=== PATIENT | female | born 1990 | race Hispanic/Latino ===

== ENCOUNTER 2019-07-11 15:26 | Inpatient (IN) | payer MEDICAID ==
[~2019-07-11] VITALS: Ht 165.1 cm; Wt 78.5 kg
[2019-07-11] MEDS ORDERED: LACTATED RINGERS 1000ML 1,000 ML IV PRN (19:33)
[2019-07-11] MEDS ORDERED: OXYTOCIN-LR 20 UNITS/1000 ML 1,000 ML IV SCH ×2 (19:45)
[2019-07-11 20:44] LABS: HEMATOCRIT 35.2 % (36-48); MEAN CORPUSCULAR HEMOGLOBIN 31.4 pg (27.0-33.0); MEAN CORPUSCULAR HGB CONC 34.6 g/dL (32.0-36.0); MEAN CORPUSCULAR VOLUME 90.6 fL (79-99); NUCLEATED RED BLOOD CELLS 0.1 % (0.0-0.19); PLATELET COUNT (AUTO) 200 K/uL (130-400); RED BLOOD CELL COUNT(AUTO) 3.88 MIL/uL (4.00-5.50); RED CELL DISTRIBUTION WIDTH 14.4 % (11.0-15.5); WHITE BLOOD COUNT (AUTO) 7.7 K/uL (4.8-10.8)
[2019-07-11 20:51] LABS: APPEARANCE,URINE Clear (CLEAR); BILIRUBIN,URINE Negative (NEGATIVE); COLOR,URINE Yellow (YELLOW); GLUCOSE, URINE (UA) Negative (NEGATIVE); KETONES,URINE Negative (NEGATIVE); LEUKOCYTE ESTERASE ,URINE Moderate (NEGATIVE); NITRATE,URINE Negative (NEGATIVE); OCCULT BLOOD,URINE Negative (NEGATIVE); PROTEIN,URINE Negative (NEGATIVE); UROBILINOGEN,URINE 0.2 mg/dL (0.2-1.0)
[2019-07-11 21:29] LABS: BACTERIA,URINE Few /HPF (None Seen); RBC,URINE 0-1 /HPF (0-1); SQUAMOUS EPITHELIAL CELL,UR Few /HPF (0-2)
[2019-07-12] MEDS ORDERED: PROMETHAZINE HCL 25 MG/ML 1ML AMPULE IM ONE (04:45)
[2019-07-12] MEDS ORDERED: MEPERIDINE-PF 50 MG/ML SYG IVP ONE (04:45)
[2019-07-12] MEDS ORDERED: MEPERIDINE-PF 50 MG/ML SYG ONE (05:07)
[2019-07-12] MEDS ORDERED: OXYTOCIN 10 USP UNITS/ML 20 UNIT in LACTATED RINGERS 1000ML 1,000 ML IV SCH (05:30)
[2019-07-12] MEDS ORDERED: ZIDOVUDINE 10 MG/ML IV SCH ×2 (06:30→06:45)
[2019-07-12] MEDS ORDERED: LACTATED RINGERS 500 ML 500 ML IV PRN (07:00)
[2019-07-12] MEDS ORDERED: ROPIVACAINE 0.2% 100ML VIAL 100 ML EP SCH (07:00)
[2019-07-12] MEDS ORDERED: EPHEDRINE SULFATE 50 MG/ML AMPULE IVP PRN (07:00)
[2019-07-12] MEDS ORDERED: NALOXONE HCL 0.4 MG/1 ML ML IV PRN (07:00)
[2019-07-12] MEDS ORDERED: ZIDOVUDINE IV SCH (07:15)
[2019-07-12] MEDS ORDERED: DEXTROSE 5% IV SCH (07:15)
[2019-07-12] MEDS ORDERED: WATER IV SCH (07:15)
[2019-07-12] MEDS ORDERED: FENTANYL CITRATE PF 50 MCG/1 ML 2ML VIAL ONE (09:00)
[2019-07-12] MEDS ORDERED: ACETAMINOPHEN 325 MG TAB PO PRN (12:00)
[2019-07-12] MEDS ORDERED: DIPH,PERTUSS(ACELL),TET VAC/PF 0.5 ML VIAL IM PRN (12:00)
[2019-07-12] MEDS ORDERED: PHARMACY COMMUNICATION MISC SCH (12:00)
[2019-07-12] MEDS ORDERED: BENZOCAINE/LANOLIN/ALOE VERA 60 ML AEROSOL TP PRN (12:00)
[2019-07-12] MEDS ORDERED: MEASLES/MUMPS/RUBELLA VACCINE, LIVE 0.5 ML/VIAL SQ PRN (12:00)
[2019-07-12] MEDS ORDERED: WITCH HAZEL 1 PAD TP PRN (12:00)
[2019-07-12] MEDS ORDERED: LANOLIN 30GM OINTMENT TP PRN (12:00)
[2019-07-12 13:34] VITALS: BP 106/59
[2019-07-12] MEDS: IBUPROFEN 600 MG TABLET PO PRN (13:58)
[2019-07-12] MEDS ORDERED: PNV1TABL17 PO (14:03)
[2019-07-12 15:58] LABS: RAPID PLASMA REAGIN NONREACTIVE (NONREACTIVE)
[2019-07-12 17:16] VITALS: BP 107/61
[2019-07-12 19:56] VITALS: BP 118/63
[2019-07-12] MEDS: DOCUSATE SODIUM 100 MG CAP PO SCH (21:49)
[2019-07-12 23:30] VITALS: BP 97/54
[2019-07-13 03:58] VITALS: BP 109/77
[2019-07-13] MEDS: IBUPROFEN 600 MG TABLET PO PRN ×3 (04:00→17:53)
[2019-07-13 05:51] LABS: HEMATOCRIT 32.7 % (36-48); MEAN CORPUSCULAR HEMOGLOBIN 31.1 pg (27.0-33.0); MEAN CORPUSCULAR HGB CONC 34.7 g/dL (32.0-36.0); MEAN CORPUSCULAR VOLUME 89.8 fL (79-99); PLATELET COUNT (AUTO) 156 K/uL (130-400); RED BLOOD CELL COUNT(AUTO) 3.64 MIL/uL (4.00-5.50); RED CELL DISTRIBUTION WIDTH 14.2 % (11.0-15.5)
[2019-07-13 07:14] LABS: HEPATITIS Bs ANTIGEN SCREEN P Negative (Negative)
[2019-07-13 07:29] VITALS: BP 110/66
--- NOTE | 2019-07-13 07:30 | NUR ---
PATIENT DENIES ANY PAIN AND DENIES ANY PROBLEMS. INDICATED TO Harsh CHIN CNM THAT SHE IS ONLY GOING TO BE FORMULA FEEDING. PATIENT INDICATED OF POSSIBLY BABY NOT BEING DISCHARGED AND WAS INFORMED SHE COULD GO HOME WHEN BABY IS DISCHARGED.
--- NOTE | 2019-07-13 08:15 | NUR ---
PATIENT WAS ASSESSED AND FUNDUS IS FIRM AND LOCHIA IS SMALL. INDICATED LAST BOWEL MOVEMENT BEING ON 05/11/19 AND DENIES PAIN. NOTED 1+ EDEMA TO LOWER EXTREMITIES BILATERALLY. PATIENT HAS NEGATIVE BRAD SIGN BILATERALLY.
[2019-07-13] MEDS: DOCUSATE SODIUM 100 MG CAP PO SCH (08:32)
--- NOTE | 2019-07-13 10:50 | NUR ---
PATIENT C/O MILD CRAMPING AND WAS MEDICATED WITH MOTRIN. PATIENT DENIES ANY OTHER PROBLEMS.
[2019-07-13 11:24] VITALS: BP 122/80
--- NOTE | 2019-07-13 15:00 | NUR ---
PATIENT REMAINS STABLE AND DENIES PAIN. RESTING AND BONDING WITH BABY.
[2019-07-13 16:28] VITALS: BP 99/52
--- NOTE | 2019-07-13 17:45 | NUR ---
LAB RESULTS WERE RECEIVED AND WERE NEGATIVE AND COPY GIVEN TO NURSERY. DR. OCASIO INDICATED IF MOTHER WAS DISCHARGED BABY COULD GO HOME. PATIENT HAD ORDER TO DISCHARGE WHEN BABY IS DISCHARGED. DISCHARGE INSTRUCTIONS WERE GIVEN TO PATIENT AND WAS ALSO MEDICATED WITH MOTRIN FOR UTERINE CRAMPING. INSTRUCTED PATIENT TO TAKE MOTRIN OVER THE COUNTER NEEDED FOR CRAMPING..
[2019-07-13] MEDS ORDERED: FLU VACC QS2019-20 36MOS UP/PF 60 MCG/0.5 ML ML IM ONE (18:30)
--- NOTE | 2019-07-13 18:45 | NUR ---
PATIENT WAS TAKEN VIA W/C CARRYING BABY IN ARMS TO FAMILY VEHICLE AND WAS DISCHARGED TO SPOUSE IN STABLE CONDITION. PATIENT WAS GIVEN MOTRIN PRIOR TO DISCHARGE.
== END 2019-07-13 18:45 | disposition home or self-care (01) | DRG 560 ==
LOC: PREOBSVTOIN 18:57 → LDH 18:59 → WSH 07-12 13:40
PROVIDERS: ADMIT Obstetrics & Gynecology; ATTEND Obstetrics & Gynecology
PROC: 10E0XZZ Delivery of Products of Conception, External Approach (ICD-10-PCS; principal; 2019-07-12)
PROC: 3E0R3BZ Introduction of Anesthetic Agent into Spinal Canal, Percutaneous Approach (ICD-10-PCS; 2019-07-12)
PROC: 00HU33Z Insertion of Infusion Device into Spinal Canal, Percutaneous Approach (ICD-10-PCS; 2019-07-12)
PROC: 10907ZC Drainage of Amniotic Fluid, Therapeutic from Products of Conception, Via Natural or Artificial Opening (ICD-10-PCS; 2019-07-12)
PROC: 3E0234Z Introduction of Serum, Toxoid and Vaccine into Muscle, Percutaneous Approach (ICD-10-PCS; 2019-07-12)
PROC: 3E0134Z Introduction of Serum, Toxoid and Vaccine into Subcutaneous Tissue, Percutaneous Approach (ICD-10-PCS; 2019-07-12)
PROC: 3E02340 Introduction of Influenza Vaccine into Muscle, Percutaneous Approach (ICD-10-PCS; 2019-07-12)
DX: O69.81X0 Labor and delivery complicated by cord around neck, without compression, not applicable or unspecified (principal); Z37.0 Single live birth; Z23 Encounter for immunization; Z3A.39 39 weeks gestation of pregnancy
CPT/HCPCS: 36415; 81001; 85027; 86592; 86701; 86850; 86900; 86901; 87340; 87390; 88307; A4314; A4606; G0378; J2175; J2590; J2795; J3010; J3485; J7060; J7120

== ENCOUNTER 2021-06-20 14:35 | Emergency (ER) | payer BC, MEDICAID ==
[~2021-06-20] VITALS: Ht 165.1 cm; Wt 74.8 kg
[~2021-06-20 14:35] MED LIST: PNV1TABL17 PO
[2021-06-20 14:37] VITALS: BP 122/89
[2021-06-20] MEDS ORDERED: 0.9%NACL 1000ML 1,000 ML IV ONE ×2 (15:00→16:18)
[2021-06-20 15:07] LABS: APPEARANCE,URINE Clear (CLEAR); BILIRUBIN,URINE Negative (NEGATIVE); COLOR,URINE Yellow (YELLOW); GLUCOSE, URINE (UA) Negative (NEGATIVE); KETONES,URINE Negative (NEGATIVE); LEUKOCYTE ESTERASE ,URINE Negative (NEGATIVE); NITRATE,URINE Negative (NEGATIVE); OCCULT BLOOD,URINE Moderate (NEGATIVE); PH,URINE 6.5 (5.0-8.0); PROTEIN,URINE Negative (NEGATIVE); UROBILINOGEN,URINE 0.2 mg/dL (0.2-1.0)
[2021-06-20 15:18] LABS: BACTERIA,URINE Rare /HPF (None Seen); RBC,URINE 0-1 /HPF (0-1); WBC,URINE 0-1 /HPF (0-1)
[2021-06-20 15:19] LABS: SQUAMOUS EPITHELIAL CELL,UR Few /HPF (0-2)
[2021-06-20] MEDS ORDERED: CEFTRIAXONE 1G VIAL IVP ONE (15:30)
[2021-06-20 15:31] LABS: BASOPHILS % (AUTO) 0.2 % (0.0-5.0); EOSINOPHILS % (AUTO) 2.5 % (0.0-8.0); HEMATOCRIT 33.6 % (36-48); LYMPHOCYTES % (AUTO) 22.4 % (21.0-51.0); MEAN CORPUSCULAR HEMOGLOBIN 29.7 pg (27.0-33.0); MEAN CORPUSCULAR HGB CONC 34.5 g/dL (32.0-36.0); MEAN CORPUSCULAR VOLUME 86.2 fL (79-99); MONOCYTES % (AUTO) 5.5 % (3.0-13.0); NEUTROPHILS % (AUTO) 69.1 % (40.0-77.0); PLATELET COUNT (AUTO) 289 K/uL (130-400); RED CELL DISTRIBUTION WIDTH 12.8 % (11.0-15.5); WHITE BLOOD COUNT (AUTO) 8.9 K/uL (4.8-10.8)
[2021-06-20 15:49] LABS: CREATININE 0.5 mg/dL (0.5-1.5); POTASSIUM 3.6 mmol/L (3.5-5.1)
[2021-06-20 16:15] LABS: ALBUMIN 3.1 g/dL (3.5-5.0); BILIRUBIN,TOTAL 0.1 mg/dL (0.2-1.0); TOTAL PROTEIN, SERUM 7.4 g/dL (6.0-8.3)
[2021-06-20] MEDS ORDERED: CEPH500B PO (17:14)
== END 2021-06-20 17:56 | disposition home or self-care (01) ==
LOC: EDH 14:35
DX: O20.0 Threatened abortion (principal); O23.41 Unspecified infection of urinary tract in pregnancy, first trimester; Z3A.13 13 weeks gestation of pregnancy
CPT/HCPCS: 36415; 76801; 80053; 81001; 84702; 85025; 86900; 86901; 96361; 96374; 99284; J0696; J7030

== ENCOUNTER 2021-10-19 04:42 | Observation (INO) | payer BC ==
[~2021-10-19] VITALS: Ht 157.5 cm; Wt 73.5 kg
[~2021-10-19 04:42] MED LIST changes: +CEPH500B PO
[2021-10-19 05:22] LABS: APPEARANCE,URINE Clear (CLEAR); BILIRUBIN,URINE Negative (NEGATIVE); COLOR,URINE Yellow (YELLOW); GLUCOSE, URINE (UA) Negative (NEGATIVE); KETONES,URINE Negative (NEGATIVE); LEUKOCYTE ESTERASE ,URINE Negative (NEGATIVE); NITRATE,URINE Negative (NEGATIVE); OCCULT BLOOD,URINE Negative (NEGATIVE); PROTEIN,URINE Negative (NEGATIVE); UROBILINOGEN,URINE 0.2 mg/dL (0.2-1.0)
[2021-10-19 05:29] LABS: AMPHET/METH SCREEN,URINE NEGATIVE (NEGATIVE); BARBITURATE SCREEN, URINE NEGATIVE (NEGATIVE); BENZODIAZEPINES SCREEN,URINE NEGATIVE (NEGATIVE); CANNABINOID SCREEN,URINE NEGATIVE (NEGATIVE); COCAINE SCREEN,URINE NEGATIVE (NEGATIVE); OPIATE SCREEN,URINE NEGATIVE (NEGATIVE); PHENCYCLIDINE SCREEN,URINE NEGATIVE (NEGATIVE)
[2021-10-19] MEDS ORDERED: GUAIFENESIN-CODEINE 5 ML SYRUP PO PRN (06:30)
[2021-10-19] MEDS ORDERED: GUAIFENESIN-CODEINE 5 ML SYRUP ONE ×2 (06:39→06:41)
[2021-10-19] MEDS: GUAIFENESIN-CODEINE 5 ML SYRUP PO PRN ×2 (06:50→12:33)
[2021-10-19] MEDS ORDERED: CEFAZOLIN SODIUM 1 GM VIAL IVP SCH (07:30)
[2021-10-19] MEDS ORDERED: ALBUTEROL 0.083% 2.5 MG/3 ML INH IH ONE (10:12)
[2021-10-19 10:15] VITALS: BP 123/75
[2021-10-19] MEDS ORDERED: GUAI-1170 PO (11:35)
[2021-10-19] MEDS ORDERED: AMOX1TAB15 PO (11:35)
[2021-10-19] MEDS ORDERED: PREN-134 PO (11:35)
[2021-10-19] MEDS ORDERED: AZIT500T2 PO (11:52)
[2021-10-19] MEDS ORDERED: GUAFACSF5L PO (11:54)
[2021-10-19 12:00] VITALS: BP 121/70
== END 2021-10-19 13:30 | disposition home or self-care (01) ==
LOC: EDH 04:42 → LDH 04:43 → WSH 10:15
PROVIDERS: ADMIT Obstetrics & Gynecology; ATTEND Obstetrics & Gynecology
DX: O26.893 Other specified pregnancy related conditions, third trimester (principal); R05.9 Cough, unspecified; Z20.822 Contact with and (suspected) exposure to COVID-19; Z3A.30 30 weeks gestation of pregnancy; Z79.899 Other long term (current) drug therapy
CPT/HCPCS: 59025; 71046; 80305; 81003; 87635; 87804 ×2; 94640; G0378 ×9; G0379

== ENCOUNTER 2021-12-18 08:58 | Observation (INO) | payer MEDICAID ==
[~2021-12-18] VITALS: Ht 165.1 cm; Wt 78.9 kg
[~2021-12-18 08:58] MED LIST changes: +AMOX-426 PO; +BUDE0.5A3 IH; -CEPH500B PO; +GUAFACSF5L PO; +GUAI400T46 PO; +IPRA3AMP24 IH; +MAGN400C PO; +METO25TA6 PO; -PNV1TABL17 PO; +PRED20TA3 PO; +PREN-134 PO
[2021-12-18 08:59] VITALS: BP 117/71
[2021-12-18] MEDS ORDERED: LACTATED RINGERS 1000ML IV SCH (10:30)
== END 2021-12-18 11:30 | disposition home or self-care (01) ==
LOC: EDH 08:58 → LDH 08:59
PROVIDERS: ADMIT Obstetrics & Gynecology; ATTEND Obstetrics & Gynecology
DX: O62.9 Abnormality of forces of labor, unspecified (principal); Z3A.38 38 weeks gestation of pregnancy
CPT/HCPCS: 96360; G0378 ×2; G0379